=== PATIENT | male | born 1985 | race Caucasian/White ===

== ENCOUNTER 2021-04-07 00:51 | Emergency (ER) | payer OTHER ==
[~2021-04-07] VITALS: Ht 180.3 cm; Wt 75.7 kg
--- NOTE | 2021-04-07 01:12 | NUR ---
JOSE TO ER BED 11. AAOX4. NOT IN RESP DISTRESS. BROUGHT IN FOR ANXIETY ATTACH AFTER SUDDENLY WAKING UP. PT REPORTS THAT HIS ANXIETY IS HIGH, TREMBLING AND CARPAL SPASM. PER PT, HE TOOK ASHWAGANDA AND EDIBLE CANNABIS BEFORE BEDTIME. PT HAS BEEN TAKING THE SUPPLEMENT FOR THE PAST 10 DAYS BUT TODAY THE SENSATION IS DIFFERENT. IS AT BEDSIDE FOR EVAL. AWAITING ORDERS
[2021-04-07] MEDS ORDERED: LORAZEPAM 1 MG TABLET ONE (01:24)
[2021-04-07] MEDS ORDERED: LORAZEPAM 1 MG TABLET PO ONE (01:30)
[2021-04-07 01:42] LABS: BASOPHILS % (AUTO) 0.9 % (0.0-2.0); EOSINOPHILS % (AUTO) 2.3 % (0.0-6.0); HEMATOCRIT 43 % (39-51); HEMOGLOBIN 15.2 g/dL (13.5-17.5); LYMPHOCYTES # (AUTO) 1.6 K/uL (0.8-4.8); LYMPHOCYTES % (AUTO) 32.8 % (20.0-44.0); MEAN CORPUSCULAR HGB CONC 36 g/dl (31.0-36.0); MEAN CORPUSCULAR VOLUME 86 fL (80-96); MONOCYTES # (AUTO) 0.5 K/uL (0.1-1.30); MONOCYTES % (AUTO) 9.9 % (2.0-12.0); NEUTROPHILS # (AUTO) 2.6 K/uL (1.8-8.9); NEUTROPHILS % (AUTO) 54.1 % (43.0-81.0); PLATELET COUNT (AUTO) 158 K/uL (150-450); RED BLOOD CELL COUNT(AUTO) 5.01 MIL/uL (4.5-6.0); WHITE BLOOD COUNT (AUTO) 4.9 K/uL (4.3-11.0)
[2021-04-07 01:55] LABS: CALCIUM, SERUM 8.9 mg/dL (8.5-10.1); CARBON DIOXIDE 27 mmol/L (21-32); CHLORIDE 102 mmol/L (98-107); CREATININE 1.2 mg/dL (0.6-1.3); GLUCOSE 143 mg/dL (74-106); POTASSIUM 3.9 mmol/L (3.5-5.1); SODIUM SERUM 138 mmol/L (136-145); UREA NITROGEN, BLOOD 28 mg/dL (7-18)
[2021-04-07 02:06] LABS: THYROID STIMULATING HORMONE 5.717 uIU/mL (0.358-3.74)
--- NOTE | 2021-04-07 02:50 | NUR ---
Patient discharged to home in stable condition. Written and verbal after care instructions given. Patient verbalizes understanding of instruction. Pt ambulatory with a steady gait
[2021-04-07 03:02] VITALS: BP 115/81
== END 2021-04-07 02:55 | disposition home or self-care (01) ==
LOC: EDBD 00:56 → ER 00:56
DX: F41.0 Panic disorder [episodic paroxysmal anxiety] (principal); Z88.0 Allergy status to penicillin
CPT/HCPCS: 36415; 80048-TC; 83735-TC; 84439-TC; 84443-TC; 84484-TC; 85025-TC